=== PATIENT | male | born 1940 | race Native Hawaiian/Other Pacific Islander ===

== ENCOUNTER 2017-08-22 07:01 | Outpatient (CLI) | payer OTHER ==
[2017-08-22 08:01] LABS: PLATELET COUNT 169 K/uL (142-355)
[2017-08-22 08:13] LABS: POTASSIUM 3.3 mmol/L (3.6-5.2)
== END 2017-08-22 21:40 | disposition home or self-care (01) ==
LOC: LABW 07:01
PROVIDERS: Internal Medicine Cardiovascular Disease
DX: I48.91 Unspecified atrial fibrillation (principal)
CPT/HCPCS: 36415; 80053; 85027

== ENCOUNTER 2018-03-31 00:09 | Emergency (ER) | payer OTHER ==
[~2018-03-31] VITALS: Ht 188 cm; Wt 113.4 kg
[2018-03-31 00:32] LABS: PLATELET COUNT 120 K/uL (142-355)
[2018-03-31 01:02] LABS: POTASSIUM 3.7 mmol/L (3.6-5.2)
== END 2018-03-31 02:15 | disposition expired ==
LOC: ED 00:09
PROVIDERS: Emergency Medicine
DX: I46.9 Cardiac arrest, cause unspecified (principal)
CPT/HCPCS: 31500; 36415; 43754; 80053; 82550; 83880; 84484; 85027; 92950; 96374; 96376; 99291; J0171; J0461; J3490; J7060